=== PATIENT | female | born 1995 | race Caucasian/White ===

== ENCOUNTER 2021-07-26 20:14 | Emergency (ER) | payer OTHER ==
[~2021-07-26] VITALS: Ht 154.9 cm; Wt 46.7 kg
[~2021-07-26 20:14] MED LIST: ZOLOFT25 MG PO
[2021-07-26 20:46] LABS: URINE BILIRUBIN NEGATIVE (Negative); URINE BLOOD NEGATIVE (Negative); URINE CLARITY CLEAR; URINE COLOR YELLOW; URINE GLUCOSE-RANDOM NEGATIVE (Negative); URINE KETONES NEGATIVE (Negative); URINE LEUKOCYTES-REFLEX TRACE (Negative); URINE NITRITE-REFLEX NEGATIVE (Negative); URINE PROTEIN NEGATIVE (Negative); URINE SPECIFIC GRAVITY <= 1.005 (1.005-1.030); URINE UROBILINOGEN 0.2 E.U./dl (0.2-1.0)
[2021-07-26 20:55] LABS: CASTS None Seen /LPF (None Seen); CRYSTALS None Seen /LPF (None Seen); MUCUS None Seen strn/LPF (None Seen); SQUAMOUS >10 Many /LPF (0-3); URINE RBC None Seen /HPF (0-2); URINE WBC-REFLEX 0-5 Rare /HPF (0-5)
[2021-07-26 21:05] LABS: AMP/METHAMP Negative (Negative); BARBITURATES Negative (Negative); BENZODIAZEPINES Negative (Negative); COCAINE Negative (Negative); METHADONE Negative (Negative); OPIATES Negative (Negative); PCP Negative (Negative); THC Negative (Negative)
[2021-07-26 21:11] LABS: HEMATOCRIT 34.6 % (37.0-47.0); HEMOGLOBIN 11.7 gm/dL (12.0-15.0); MCH 31.1 pg (26.0-34.0); MCHC 33.7 g/dL (28.0-37.0); MCV 92.2 fL (80.0-100.0); MPV 7.9 fl. (7.2-11.1); RBC 3.76 mil/uL (4.20-5.00); RDW-CV 12.6 % (10.5-14.5); WBC 7.4 thou/uL (4.0-11.0)
[2021-07-26 21:16] LABS: CALCIUM 8.9 mg/dL (8.5-10.1); CREATININE 0.7 mg/dL (0.6-1.3); POTASSIUM 3.2 mmol/L (3.5-5.1)
[2021-07-26 21:20] LABS: TOTAL BILIRUBIN 0.4 mg/dL (<0.1-1.0); TOTAL PROTEIN 7.6 g/dL (6.4-8.2)
[2021-07-26 21:42] VITALS: BP 112/54
== END 2021-07-26 21:43 | disposition home or self-care (01) ==
LOC: M.ERS 20:14
PROVIDERS: Personal Emergency Response Attendant
DX: R20.0 Anesthesia of skin (principal); F41.9 Anxiety disorder, unspecified; Z88.8 Allergy status to other drugs, medicaments and biological substances

== ENCOUNTER 2021-11-06 18:54 | Emergency (ER) | payer MEDICAID ==
[~2021-11-06] VITALS: Ht 154.9 cm; Wt 44.5 kg
[2021-11-06] MEDS ORDERED: NEURONTIN 300M300 M2 PO (19:03)
[2021-11-06] MEDS ORDERED: VISTARIL 25 MG25 M1 PO (20:44)
[2021-11-06 20:52] VITALS: BP 110/65
--- NOTE | 2021-11-07 12:54 | EKG ---
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1995 Requested By: César Mackenzie Order Number: [id number] MD: Stuart Escobar Measurements Intervals [place] Rate: 65 P: 16 WV: 121 QRS: 80 QRSD: 88 T: 54 QT: 378 QTc: 393 Interpretive Statements Sinus rhythm RSR' in V1 or V2, right VCD or RVH Compared to ECG 02/11/2016 19:38:22 RSR' in V1 or V2 now present Electronically Signed On 11-07-2021 12:54:13 CARDIAC CARE NURSE by Stuart Escobar [email or web address] <ELECTRONICALLY SIGNED> By: Reuben Escobar MD, MERGED WITH [facility] 11/07/21 1254 06 06 Reuben Escobar MD, MERGED WITH [facility] /EPI
== END 2021-11-06 20:54 | disposition home or self-care (01) ==
LOC: M.ERS 18:54
DX: F41.9 Anxiety disorder, unspecified (principal); R07.89 Other chest pain; Z79.899 Other long term (current) drug therapy; Z88.8 Allergy status to other drugs, medicaments and biological substances